=== PATIENT | female | born 1975 | race American Indian/Alaskan Native ===

== ENCOUNTER 2020-08-30 11:32 | Emergency (ER) | payer BC ==
[2020-08-30] MEDS ORDERED: FAMOTIDINE 20 MG TAB PO ONE (11:50)
[2020-08-30] MEDS ORDERED: ALUM-MAG HYDROXIDE-SIMETHICONE 200-200-20MG/5ML ORAL LIQD 30 ML PO ONE (11:50)
--- NOTE | 2020-08-30 11:52 | Event Note ---
ED Screening Note Date of service: 08/30/20 Time: 11:51 ED Screening Note: 45 yr old female presents to ED with c/o sharp substernal chest pain which has been intermittent since yesterday and right chest sided pressure which started today. She reports nausea but no vomiting. She denies abd pain, sob, cough, fever or chills. This initial assessment/diagnostic orders/clinical plan/treatment(s) is/are subject to change based on patients health status, clinical progression and re- assessment by fellow clinical providers in the ED. Further treatment and workup at subsequent clinical providers discretion. Patient/guardian urged not to elope from the ED as their condition may be serious if not clinically assessed and managed. Initial orders include: Chest pain order set
--- NOTE | 2020-08-30 12:29 | XRay Report ---
CHEST 2 VIEWS INDICATION: Chest Pain. COMPARISON: None FINDINGS: SUPPORT DEVICES: None. HEART: Within normal limits. LUNGS/PLEURA: No acute air space or interstitial disease. No pneumothorax. ADDITIONAL FINDINGS: None. IMPRESSION: 1. No acute findings. Signer Name: Prasad Diop MD Signed: 08/30/2020 12:25 PM Workstation Name: [id number]
[2020-08-30 12:36] LABS: Amphetamine Screen,Urine Negative; Benzodiazepines Screen,Urine Negative; Cannabinoid Screen,Urine Negative; Cocaine Screen,Urine Negative; Methadone Screen,Urine Negative; Opiate Screen,Urine Negative
[2020-08-30 12:44] LABS: Basophils % (Auto) 0.5 % (0.0-1.8); Eosinophils # (Auto) 0.1 K/mm3 (0.0-0.4); Hematocrit 41.9 % (30.3-42.9); Hemoglobin 13.9 gm/dl (10.1-14.3); Lymphocytes # (Auto) 1.6 K/mm3 (1.2-5.4); Lymphocytes % (Auto) 25.3 % (13.4-35.0); Mean Corpuscular HGB Conc 33 % (30-34); Mean Corpuscular Volume 70 fl (79-97); Monocytes # (Auto) 0.5 K/mm3 (0.0-0.8); Monocytes % (Auto) 8.5 % (0.0-7.3); Platelet Count 205 K/mm3 (140-440); Red Blood Count 5.99 M/mm3 (3.65-5.03); Red Cell Distribution Width 14.7 % (13.2-15.2)
[2020-08-30 12:51] LABS: Alanine Aminotransferase 19 units/L (7-56); BUN/Creatinine Ratio 11; Blood Urea Nitrogen 10 mg/dL (7-17); Calcium 9.3 mg/dL (8.4-10.2); Hemolysis Index 3
[2020-08-30 12:59] LABS: Bacteria,Urine 1+ /HPF (Negative); Bilirubin,Urine NEG (Negative); Blood,Urine NEG (Negative); Color,Urine Straw (Yellow); Protein,Urine <15 mg/dL mg/dL (Negative); Urobilinogen,Urine < 2.0 mg/dL (<2.0); WBC,Urine < 1.0 /HPF (0.0-6.0)
--- NOTE | 2020-08-30 13:09 | Emergency Department Report ---
ED Chest Pain HPI - General Chief Complaint: Chest Pain Stated Complaint: CHESTPAIN/UPPER ABDOMINAL PAIN Time Seen by Provider: 08/30/20 13:03 Source: patient Mode of arrival: Ambulatory Limitations: No Limitations - History of Present Illness Initial Comments: This is a 45-year-old female who has had a previous negative cardiac work-up in 2018 at this facility. She describes upper abdominal pain and lower chest pain without radiation. She states that she has had this problem for several years. It recurred last night. She describes a crampy discomfort which has improved since she has not eaten. She states that she has had similar pain which appears to be clearly postprandial. She denies ever having an ultra sound examination. She consciously fasted today to see if the pain would subside which it has. She states that she has always presume this was reflux. Indeed she has been previously diagnosed with the same. She states that to her knowledge gallstones do not run in her family. Patient denies any respiratory symptoms. She has had no recent travel. She has had no leg pain or swelling. She is essentially asymptomatic at the time of my encounter. 2018: Hospitalization Reason for admission: Chest pain /tightness/shortness of breath Condition: Serious Pertinent studies: ECHO : LVEF 55-60% Stress test:normal study[ negative for reversible ischemia],EF 60% Hospital course: Very pleasant obese 43-year-old female patient with significant history of hypertension, was admitted through ER with chest tightness and shortness of breath. Symptomatically managed,underwent Echo ,EF with in normal limits,and stress test,negative for reversible ischemia Patients chest pain and pressure ,non cardiac,probably secondary to GERD. managed with antacids and pain meds,symptoms significantly amproved. Advised weight reduction,patient verbalised understanding. Today patient is comfortable,no new complaints,of chest pain or tightness or shortness of breath vital signs stable, Physical exam prior to discharge is unremarkable. Patient is stable at discharge. Discharge Diagnosis: --Atypical chest pain: non cardiac ,negative stress test --GERD : probably the cause of chest pain/pressure like symptoms --Hypertension: stable --Obesity: advised weight reduction Disposition: DC-01 TO HOME OR SELFCARE - Related Data Home Medications Medication Instructions Recorded Confirmed Last Taken Ferrous Sulfate [Feosol 325 MG tab] 1 tab PO BID 05/23/18 05/23/18 05/23/18 Lisinopril/Hydrochlorothiazide 1 tab PO DAILY 05/23/18 05/23/18 05/23/18 [Zestoretic 20-25 mg] amLODIPine 1 tab PO DAILY 05/23/18 05/23/18 05/23/18 Previous Rx's Medication Instructions Recorded Last Taken Type traMADoL [Ultram] 50 mg PO Q6HR PRN #12 tablet 05/24/18 Unknown Rx Omeprazole 40 mg PO DAILY #30 capsule. 01/23/20 Unknown Rx Sucralfate [Carafate] 1 gm PO ACHS 7 Days #28 tablet 01/23/20 Unknown Rx Lansoprazole [Prevacid] 15 mg PO BID #60 cap 08/30/20 Unknown Rx Allergies Allergy/AdvReac Type Severity Reaction Status Date / Time No Known Allergies Allergy Verified 08/30/20 11:44 Heart Score - HEART Score History: Slightly suspicious EKG: Normal Age: 45-65 Risk factors: No known risk factors (Perhaps overweight) Troponin: < normal limit HEART Score: 1 - Critical Actions Critical Actions: 0-3 pts:0.9-1.7%risk of adverse cardiac event.Candidate for discharge ED Review of Systems ROS: Stated complaint: CHESTPAIN/UPPER ABDOMINAL PAIN Other details as noted in HPI Constitutional: denies: chills, fever Eyes: denies: eye pain, eye discharge, vision change ENT: denies: ear pain, throat pain Respiratory: denies: cough, shortness of breath Cardiovascular: chest pain. denies: palpitations Endocrine: no symptoms reported Gastrointestinal: abdominal pain, other (Indigestion/reflux symptoms). denies: nausea, diarrhea Genitourinary: denies: urgency, dysuria Musculoskeletal: denies: back pain, arthralgia Skin: denies: rash, lesions Neurological: denies: headache, weakness, paresthesias Psychiatric: denies: anxiety, depression Hematological/Lymphatic: denies: easy bleeding, easy bruising ED Past Medical Hx - Past Medical History Hx Hypertension: Yes Hx Congestive Heart Failure: No Hx Diabetes: No Hx Asthma: No Hx COPD: No Additional medical history: fibriods REFLUX. anemia - Surgical History Additional Surgical History: x1. hyster - Social History Smoking Status: Never Smoker Substance Use Type: None - Medications Home Medications: Home Medications Medication Instructions Recorded Confirmed Last Taken Type Ferrous Sulfate [Feosol 325 MG tab] 1 tab PO BID 05/23/18 05/23/18 05/23/18 History Lisinopril/Hydrochlorothiazide 1 tab PO DAILY 05/23/18 05/23/18 05/23/18 History [Zestoretic 20-25 mg] amLODIPine 1 tab PO DAILY 05/23/18 05/23/18 05/23/18 History traMADoL [Ultram] 50 mg PO Q6HR PRN #12 tablet 05/24/18 Unknown Rx Omeprazole 40 mg PO DAILY #30 capsule. 01/23/20 Unknown Rx Sucralfate [Carafate] 1 gm PO ACHS 7 Days #28 tablet 01/23/20 Unknown Rx Lansoprazole [Prevacid] 15 mg PO BID #60 cap 08/30/20 Unknown Rx ED Physical Exam - General Limitations: No Limitations General appearance: alert, in no apparent distress - Head Head exam: Present: atraumatic, normocephalic - Eye Eye exam: Present: normal appearance. Absent: scleral icterus - ENT ENT exam: Present: mucous membranes moist - Neck Neck exam: Present: normal inspection - Respiratory Respiratory exam: Present: normal lung sounds bilaterally. Absent: respiratory distress - Cardiovascular Cardiovascular Exam: Present: regular rate, normal rhythm. Absent: systolic murmur, diastolic murmur, rubs, gallop - GI/Abdominal GI/Abdominal exam: Present: soft, normal bowel sounds. Absent: distended, tenderness, guarding, rebound, rigid, organomegaly, mass, bruit - Extremities Exam Extremities exam: Present: normal inspection - Back Exam Back exam: Present: normal inspection - Neurological Exam Neurological exam: Present: alert, oriented X3, CN II-XII intact. Absent: motor sensory deficit - Psychiatric Psychiatric exam: Present: normal affect, normal mood - Skin Skin exam: Present: warm, dry, intact, normal color. Absent: rash ED Course Vital Signs 08/30/20 08/30/20 08/30/20 11:46 11:49 13:31 Temperature 98.0 F Pulse Rate 79 65 Respiratory 20 13 Rate Blood Pressure 136/91 110/68 O2 Sat by Pulse 98 100 Oximetry 08/30/20 14:01 Temperature Pulse Rate 69 Respiratory 12 Rate Blood Pressure 115/81 O2 Sat by Pulse 99 Oximetry - Reevaluation(s) Reevaluation #1: I do not find anything to suggest a cardiac etiology in the presentation EKG or laboratory work-up of this patient. It would appear that her symptoms are GI most consistent with biliary colic. An ultrasound is pending. 08/30/20 13:47 MARISOL score - Marisol Score Age > 65: (0) No Aspirin use within the Past 7 Days: (0) No 3 or more CAD Risk Factors: (0) No 2 or more Angina events in past 24 hrs: (1) Yes Known CAD with more than 50% Stenosis: (0) No Elevated Cardiac Markers: (0) No ST Deviation Greater than 0.5mm: (0) No MARISOL Score: 1 ED Medical Decision Making - Lab Data Result diagrams: 08/30/20 12:12 08/30/20 12:12 Laboratory Results - last 24 hr 08/30/20 08/30/20 08/30/20 12:12 12:12 12:12 WBC 6.3 RBC 5.99 H Hgb 13.9 Hct 41.9 MCV 70 L MCH 23 L MCHC 33 RDW 14.7 Plt Count 205 Lymph % (Auto) 25.3 [place] % (Auto) 8.5 H Eos % (Auto) 1.0 Baso % (Auto) 0.5 Lymph # (Auto) 1.6 [place] # (Auto) 0.5 Eos # (Auto) 0.1 Baso # (Auto) 0.0 Seg Neutrophils % 64.7 Seg Neutrophils # 4.1 Sodium 139 Potassium 3.9 Chloride 99.9 Carbon Dioxide 29 Anion Gap 14 BUN 10 Creatinine 0.9 Estimated GFR > 60 BUN/Creatinine Ratio 11 Glucose 101 H Calcium 9.3 Total Bilirubin 0.40 AST 21 ALT 19 Alkaline Phosphatase 74 Troponin T < 0.010 Total Protein 6.6 Albumin 4.0 Albumin/Globulin Ratio 1.5 Lipase 34 HCG, Qual Negative Urine Color Urine Turbidity Urine pH Ur Specific [place] Urine Protein Urine Glucose (UA) Urine Ketones Urine Blood Urine Nitrite Urine Bilirubin Urine Urobilinogen Ur Leukocyte Esterase Urine WBC (Auto) Urine RBC (Auto) U Epithel Cells (Auto) Urine Bacteria (Auto) Urine Opiates Screen Urine Methadone Screen Ur Barbiturates Screen Ur Phencyclidine Scrn Ur Amphetamines Screen U Benzodiazepines Scrn Urine Cocaine Screen U Marijuana (THC) Screen Drugs of Abuse Note 08/30/20 08/30/20 Unknown Unknown WBC RBC Hgb Hct MCV MCH MCHC RDW Plt Count Lymph % (Auto) [place] % (Auto) Eos % (Auto) Baso % (Auto) Lymph # (Auto) [place] # (Auto) Eos # (Auto) Baso # (Auto) Seg Neutrophils % Seg Neutrophils # Sodium Potassium Chloride Carbon Dioxide Anion Gap BUN Creatinine Estimated GFR BUN/Creatinine Ratio Glucose Calcium Total Bilirubin AST ALT Alkaline Phosphatase Troponin T Total Protein Albumin Albumin/Globulin Ratio Lipase HCG, Qual Urine Color Straw Urine Turbidity Clear Urine pH 7.0 Ur Specific [place] 1.004 Urine Protein <15 mg/dl Urine Glucose (UA) Neg Urine Ketones Neg Urine Blood Neg Urine Nitrite Neg Urine Bilirubin Neg Urine Urobilinogen < 2.0 Ur Leukocyte Esterase Neg Urine WBC (Auto) < 1.0 Urine RBC (Auto) 0.0 U Epithel Cells (Auto) 1.0 Urine Bacteria (Auto) 1+ Urine Opiates Screen Negative Urine Methadone Screen Negative Ur Barbiturates Screen Negative Ur Phencyclidine Scrn Negative Ur Amphetamines Screen Negative U Benzodiazepines Scrn Negative Urine Cocaine Screen Negative U Marijuana (THC) Screen Negative Drugs of Abuse Note Disclamer - EKG Data -: EKG Interpreted by Fl EKG shows normal: sinus rhythm, axis, intervals, QRS complexes, ST-T waves Rate: normal - EKG Data Interpretation: nonspecific ST-T wave brianna - Radiology Data Gallbladder ultrasound shows 2 polyps. No other findings per tech. Critical care attestation.: If time is entered above; I have spent that time in minutes in the direct care of this critically ill patient, excluding procedure time. 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 Return any acute change or problem. Rx as directed. Prescriptions: Lansoprazole [Prevacid] 15 mg PO BID #60 cap Referrals: BERNADETTE MORRIS MD [Primary Care Provider] - 3-5 Days [facility] [Provider Group] - 3-5 Days Time of Disposition: 15:32
[2020-08-30 14:51] VITALS: BP 115/81
--- NOTE | 2020-08-30 15:25 | Ultrasound Report ---
ULTRASOUND ABDOMEN, LIMITED (RIGHT UPPER QUADRANT) INDICATION: Post prandial abd pain. COMPARISON: None available. FINDINGS: Pancreas: The pancreatic tail is obscured. No significant abnormality along the remaining portions. Liver: Mildly enlarged, measuring 17.5 cm in length. There is nonspecific generalized heterogeneity. No other significant abnormality. Gallbladder: Subcentimeter polyps versus tumefactive sludge are noted without shadowing stones, wall thickening or pericholecystic fluid. A sonographic Perez sign was not reported. Bile ducts: No significant abnormality. Common Bile Duct measures 3.1 mm. Free fluid: None. Additional Findings: None. IMPRESSION: 1. Hepatomegaly with nonspecific generalized heterogeneous echotexture. Please correlate with the cli nical findings. 2. Tumefactive sludge versus polyps in the gallbladder without visualization of stones or evidence of acute cholecystitis. Signer Name: Hal Glass MD Signed: 08/30/2020 3:21 PM Workstation Name: [id number]
== END 2020-08-30 15:45 | disposition home or self-care (01) ==
LOC: ED 11:32
DX: K21.9 Gastro-esophageal reflux disease without esophagitis (principal); K82.4 Cholesterolosis of gallbladder; R07.89 Other chest pain; I10 Essential (primary) hypertension; Z98.890 Other specified postprocedural states; Z79.899 Other long term (current) drug therapy
CPT/HCPCS: 36415; 71046; 76705; 80053; 80307; 81001; 83690; 84484; 84703; 85025; 93005

== ENCOUNTER 2021-03-18 08:50 | Emergency (ER) | payer BC ==
[2021-03-18] MEDS ORDERED: DICYCLOMINE 20 MG TAB PO ONE (09:13)
[2021-03-18] MEDS ORDERED: METOCLOPRAMIDE 10 MG/2 ML INJ IV ONE (09:13)
[2021-03-18] MEDS ORDERED: SODIUM CHLORIDE 0.9% 1000 ML 1,000 ML IV ONE (09:13)
[2021-03-18] MEDS ORDERED: FAMOTIDINE 20 MG/2 ML INJ IV ONE (09:13)
[2021-03-18] MEDS ORDERED: diphenhydrAMINE 50 MG/ML VIAL IV ONE (09:14)
--- NOTE | 2021-03-18 10:05 | Emergency Department Report ---
ED Abdominal Pain HPI - General Chief Complaint: Abdominal Pain Stated Complaint: CP Time Seen by Provider: 03/18/21 09:10 Source: patient Mode of arrival: Ambulatory Limitations: No Limitations - History of Present Illness Initial Comments: This is a 45-year-old female nontoxic, well nourished in appearance, no acute signs of distress presents to the ED with c/o of nausea and abdominal "queasy" sensation x1 day. Patient stated has history of GERD and symptoms are similar. Describes abdominal as a burning sensation that goes to her epigastric area. Patient denies any vomiting. Patient describes abdominal queasy sensation primarily in the upper abdomen. Patient denies chest pain, short of breath, fever, hemoptysis, blood in stool, chills, headache, stiff neck, numbness or tingling. Patient denies any diarrhea or constipation. Denies any blood in stool. Patient denies any recent travels. Patient denies any allergies or significant past medical history. -: days(s) Location: epigastric Migration to: no migration Severity: mild Severity scale (0 -10): 0 Consistency: intermittent Improves With: nothing Worsens With: nothing Associated Symptoms: nausea. denies: vomiting, diarrhea, fever, chills, constipation, dysuria, hematemesis, hematochezia, melena, hematuria, anorexia, syncope - Related Data Home Medications Medication Instructions Recorded Confirmed Last Taken Ferrous Sulfate [Feosol 325 MG tab] 1 tab PO BID 05/23/18 05/23/18 05/23/18 Lisinopril/Hydrochlorothiazide 1 tab PO DAILY 05/23/18 05/23/18 05/23/18 [Zestoretic 20-25 mg] amLODIPine 1 tab PO DAILY 05/23/18 05/23/18 05/23/18 Previous Rx's Medication Instructions Recorded Last Taken Type traMADoL [Ultram] 50 mg PO Q6HR PRN #12 tablet 05/24/18 Unknown Rx Omeprazole 40 mg PO DAILY #30 capsule. 01/23/20 Unknown Rx Sucralfate [Carafate] 1 gm PO ACHS 7 Days #28 tablet 01/23/20 Unknown Rx Lansoprazole [Prevacid] 15 mg PO BID #60 cap 08/30/20 Unknown Rx Dicyclomine [Bentyl] 20 mg PO Q12H PRN #12 tablet 03/18/21 Unknown Rx Ondansetron [Zofran Odt] 4 mg PO Q12H PRN #12 tab.rapdis 03/18/21 Unknown Rx Allergies Allergy/AdvReac Type Severity Reaction Status Date / Time No Known Allergies Allergy Verified 03/18/21 09:01 ED Review of Systems ROS: Stated complaint: CP Other details as noted in HPI Comment: All other systems reviewed and negative Constitutional: denies: chills, fever Eyes: denies: eye pain, eye discharge, vision change ENT: denies: ear pain, throat pain Respiratory: denies: cough, shortness of breath, wheezing Cardiovascular: denies: chest pain, palpitations Endocrine: no symptoms reported Gastrointestinal: abdominal pain (" Queasy sensation"), nausea. denies: vomiting, diarrhea, constipation, hematemesis, melena, hematochezia Genitourinary: denies: urgency, dysuria, discharge Musculoskeletal: denies: back pain, joint swelling, arthralgia Skin: denies: rash, lesions Neurological: denies: headache, weakness, paresthesias Psychiatric: denies: anxiety, depression Hematological/Lymphatic: denies: easy bleeding, easy bruising ED Past Medical Hx - Past Medical History Hx Hypertension: Yes Hx Congestive Heart Failure: No Hx Diabetes: No Hx Asthma: No Hx COPD: No Additional medical history: fibriods. anemia - Surgical History Additional Surgical History: x1. hyster - Social History Smoking Status: Never Smoker Substance Use Type: None - Medications Home Medications: Home Medications Medication Instructions Recorded Confirmed Last Taken Type Ferrous Sulfate [Feosol 325 MG tab] 1 tab PO BID 05/23/18 05/23/18 05/23/18 History Lisinopril/Hydrochlorothiazide 1 tab PO DAILY 05/23/18 05/23/18 05/23/18 History [Zestoretic 20-25 mg] amLODIPine 1 tab PO DAILY 05/23/18 05/23/18 05/23/18 History traMADoL [Ultram] 50 mg PO Q6HR PRN #12 tablet 05/24/18 Unknown Rx Omeprazole 40 mg PO DAILY #30 capsule. 01/23/20 Unknown Rx Sucralfate [Carafate] 1 gm PO ACHS 7 Days #28 tablet 01/23/20 Unknown Rx Lansoprazole [Prevacid] 15 mg PO BID #60 cap 08/30/20 Unknown Rx Dicyclomine [Bentyl] 20 mg PO Q12H PRN #12 tablet 03/18/21 Unknown Rx Ondansetron [Zofran Odt] 4 mg PO Q12H PRN #12 tab.rapdis 03/18/21 Unknown Rx ED Physical Exam - General Limitations: No Limitations General appearance: alert, in no apparent distress - Head Head exam: Present: atraumatic, normocephalic - Eye Eye exam: Present: normal appearance - Neck Neck exam: Present: normal inspection, full ROM. Absent: lymphadenopathy - Respiratory Respiratory exam: Present: normal lung sounds bilaterally. Absent: respiratory distress, wheezes, rales, rhonchi, stridor, chest wall tenderness, accessory muscle use, decreased breath sounds, prolonged expiratory - Cardiovascular Cardiovascular Exam: Present: regular rate, normal rhythm, normal heart sounds. Absent: bradycardia, tachycardia, irregular rhythm, systolic murmur, diastolic murmur, rubs, gallop - GI/Abdominal GI/Abdominal exam: Present: soft, normal bowel sounds. Absent: distended, tenderness, guarding, rebound, rigid, diminished bowel sounds, mass, bruit, pulsatile mass, hernia - Extremities Exam Extremities exam: Present: full ROM - Back Exam Back exam: Present: normal inspection, full ROM. Absent: tenderness, CVA tenderness (R), CVA tenderness (L), muscle spasm, paraspinal tenderness, vertebral tenderness, rash noted - Neurological Exam Neurological exam: Present: alert, oriented X3, normal gait - Psychiatric Psychiatric exam: Present: normal affect, normal mood - Skin Skin exam: Present: warm, dry, intact, normal color. Absent: rash ED Course Vital Signs 03/18/21 03/18/21 03/18/21 09:07 12:10 12:20 Temperature 98.2 F 98.1 F Pulse Rate 70 88 Respiratory 18 14 Rate Blood Pressure Blood Pressure 126/84 115/68 [Right] O2 Sat by Pulse 99 100 100 Oximetry 03/18/21 03/18/21 03/18/21 12:31 12:45 13:10 Temperature Pulse Rate 66 71 Respiratory 10 L 21 Rate Blood Pressure 121/78 121/78 Blood Pressure [Right] O2 Sat by Pulse 100 99 100 Oximetry - Reevaluation(s) Reevaluation #1: 03/18/21 10:04 Patient is speaking in full sentences with no signs of distress noted. - Consultations Consultation #1: 03/18/21 14:48 Patient has been consulted with Aftab Peace about patient history, physical exam, and labs and agrees to the ED plan of care and discharge plan of care. ED Medical Decision Making - Lab Data Result diagrams: 03/18/21 09:43 03/18/21 14:08 Lab Results 03/18/21 03/18/21 03/18/21 Range/Units 09:04 09:43 09:43 WBC 6.5 (4.5-11.0) K/mm3 RBC 5.82 H (3.65-5.03) M/mm3 Hgb 13.4 (10.1-14.3) gm/dl Hct 41.4 (30.3-42.9) % MCV 71 L (79-97) fl MCH 23 L (28-32) pg MCHC 32 (30-34) % RDW 14.9 (13.2-15.2) % Plt Count 234 (140-440) K/mm3 Lymph % (Auto) 18.9 (13.4-35.0) % Redwood % (Auto) 8.7 H (0.0-7.3) % Eos % (Auto) 0.6 (0.0-4.3) % Baso % (Auto) 0.5 (0.0-1.8) % Lymph # (Auto) 1.2 (1.2-5.4) K/mm3 [place] # (Auto) 0.6 (0.0-0.8) K/mm3 Eos # (Auto) 0.0 (0.0-0.4) K/mm3 Baso # (Auto) 0.0 (0.0-0.1) K/mm3 Seg Neutrophils % 71.3 H (40.0-70.0) % Seg Neutrophils # 4.6 (1.8-7.7) K/mm3 Sodium 140 (137-145) mmol/L Potassium 2.9 L* (3.6-5.0) mmol/L Chloride 102.6 (98-107) mmol/L Carbon Dioxide 23 (22-30) mmol/L Anion Gap 17 mmol/L BUN 11 (7-17) mg/dL Creatinine 0.8 (0.6-1.2) mg/dL Estimated GFR > 60 ml/min BUN/Creatinine Ratio 14 % Glucose 95 (65-100) mg/dL Calcium 9.1 (8.4-10.2) mg/dL Magnesium (1.7-2.3) mg/dL Total Bilirubin 0.50 (0.1-1.2) mg/dL AST 19 (5-40) units/L ALT 18 (7-56) units/L Alkaline Phosphatase 73 (35-129) units/L Total Protein 6.8 (6.3-8.2) g/dL Albumin 3.9 (3.9-5) g/dL Albumin/Globulin Ratio 1.3 % Lipase 27 (13-60) units/L Urine Color Straw (Yellow) Urine Turbidity Clear (Clear) Urine pH 5.0 (5.0-7.0) Ur Specific Lyons 1.005 (1.003-1.030) Urine Protein <15 mg/dl (Negative) mg/dL Urine Glucose (UA) Neg (Negative) mg/dL Urine Ketones Neg (Negative) mg/dL Urine Blood Sm (Negative) Urine Nitrite Neg (Negative) Urine Bilirubin Neg (Negative) Urine Urobilinogen < 2.0 (<2.0) mg/dL Ur Leukocyte Esterase Neg (Negative) Urine WBC (Auto) < 1.0 (0.0-6.0) /HPF Urine RBC (Auto) < 1.0 (0.0-6.0) /HPF U Epithel Cells (Auto) < 1.0 (0-13.0) /HPF Urine Mucus Few /HPF 03/18/21 Range/Units 14:08 WBC (4.5-11.0) K/mm3 RBC (3.65-5.03) M/mm3 Hgb (10.1-14.3) gm/dl Hct (30.3-42.9) % MCV (79-97) fl MCH (28-32) pg MCHC (30-34) % RDW (13.2-15.2) % Plt Count (140-440) K/mm3 Lymph % (Auto) (13.4-35.0) % Redwood % (Auto) (0.0-7.3) % Eos % (Auto) (0.0-4.3) % Baso % (Auto) (0.0-1.8) % Lymph # (Auto) (1.2-5.4) K/mm3 Redwood # (Auto) (0.0-0.8) K/mm3 Eos # (Auto) (0.0-0.4) K/mm3 Baso # (Auto) (0.0-0.1) K/mm3 Seg Neutrophils % (40.0-70.0) % Seg Neutrophils # (1.8-7.7) K/mm3 Sodium (137-145) mmol/L Potassium 3.9 D (3.6-5.0) mmol/L Chloride (98-107) mmol/L Carbon Dioxide (22-30) mmol/L Anion Gap mmol/L BUN (7-17) mg/dL Creatinine (0.6-1.2) mg/dL Estimated GFR ml/min BUN/Creatinine Ratio % Glucose (65-100) mg/dL Calcium (8.4-10.2) mg/dL Magnesium 2.00 (1.7-2.3) mg/dL Total Bilirubin (0.1-1.2) mg/dL AST (5-40) units/L ALT (7-56) units/L Alkaline Phosphatase (35-129) units/L Total Protein (6.3-8.2) g/dL Albumin (3.9-5) g/dL Albumin/Globulin Ratio % Lipase (13-60) units/L Urine Color (Yellow) Urine Turbidity (Clear) Urine pH (5.0-7.0) Ur Specific Lyons (1.003-1.030) Urine Protein (Negative) mg/dL Urine Glucose (UA) (Negative) mg/dL Urine Ketones (Negative) mg/dL Urine Blood (Negative) Urine Nitrite (Negative) Urine Bilirubin (Negative) Urine Urobilinogen (<2.0) mg/dL Ur Leukocyte Esterase (Negative) Urine WBC (Auto) (0.0-6.0) /HPF Urine RBC (Auto) (0.0-6.0) /HPF U Epithel Cells (Auto) (0-13.0) /HPF Urine Mucus /HPF - Radiology Data [facility] [address] [place] [address] Cat Scan Report Signed Patient: SIGIFREDO NOONAN MR#: [id number] : 1974 Acct:[id number] Age/Sex: 45 / F ADM Date: 03/18/21 Loc: ED Attending Dr: Ordering Physician: JANE LIU NP Date of Service: 03/18/21 Procedure(s): CT abdomen pelvis w con Accession Number(s): [id number] cc: JANE LIU NP CT ABDOMEN AND PELVIS WITH CONTRAST INDICATION / CLINICAL INFORMATION: Unspecified abdominal pain. TECHNIQUE: Axial CT images were obtained through the abdomen and pelvis after 100 cc Omnipaque [address] scans at this location are performed using CT dose reduction for ALARA by means of automated exposure control. COMPARISON: Limited abdominal ultrasound performed on 08/30/2020. FINDINGS: LOWER CHEST: No significant abnormality. LIVER: No significant a bnormality. GALLBLADDER: No significant abnormality. BILE DUCTS: No significant abnormality. PANCREAS: No significant abnormality. SPLEEN: No significant abnormality. ADRENALS: No significant abnormality. KIDNEYS / URETERS: No significant abnormality. STOMACH / SMALL BOWEL: No significant abnormality. COLON: No significant abnormality. APPENDIX: No significant abnormality. PERITONEUM: No free fluid. No free air. No fluid collection. LYMPH NODES: No significant adenopathy. AORTA / ARTERIES: No significant abnormality. IVC / VEINS: No significant abnormality. URINARY BLADDER: Well-distended without an acute abnormality. REPRODUCTIVE ORGANS: No significant abnormality. ADDITIONAL FINDINGS: None. BONES: No significant abnormality. IMPRESSION: 1. No significant abnormality of the abdomen or pelvis. Signer Name: Hal Glass MD Signed: 03/18/2021 12:35 PM Workstation Name: [id number] Transcribed By: CHERYL Dictated By: Hal Glass MD Electronically Authenticated By: Hla Glass MD Sign ed Date/Time: 03/18/21 1235 DD/ 1230 TD/TT: - Medical Decision Making This is a 45-year-old female that presents with abdominal pain, nausea, hypokal emia.. Patient is stable and was examined by me. Labs obtained. Patient stated she takes a diuretic which causes sometimes hypokalemia. UA obtained. CT of abdomen obtained and dictated by the radiologist. Patient is notified of the report with no questions noted by the patient. Vital signs are stable prior to discharge. Patient received medical treatment in the ED which patient stated symptoms has resovled and subsided. Was instructed note to operate any machinery due to possible drowsiness and stated someone will drive the patient home. A by mouth challenge has been obtained and patient tolerated well with no nausea vomiting. Patient was also instructed to Follow-up with a primary care doctor in 3-5 days or if symptoms worsen and continue return to emergency room as soon as possible. At time of discharge, the patient does not seem toxic or ill in appearance. No acute signs of distress noted. Patient agrees to discharge treatment plan of care. No further questions noted by the patient. Critical care attestation.: If time is entered above; I have spent that time in minutes in the direct care of this critically ill patient, excluding procedure time. 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 Prescriptions: Dicyclomine [Bentyl] 20 mg PO Q12H PRN #12 tablet PRN Reason: abdominal pain Ondansetron [Zofran Odt] 4 mg PO Q12H PRN #12 tab.rapdis PRN Reason: Nausea Referrals: BERNADETTE MORRIS MD [Primary Care Provider] - 3-5 Days ALTHEA MEJIA MD [Referring] - 3-5 Days TANK WAGNER MD [Staff Physician] - 3-5 Days [facility] [Provider Group] - 3-5 Days Forms: Work/School Release Form(ED) Time of Disposition: 14:56
[2021-03-18 10:15] LABS: Bilirubin,Urine NEG (Negative); Blood,Urine SM (Negative); Color,Urine Straw (Yellow); Mucus,Urine FEW /HPF; Protein,Urine <15 mg/dL mg/dL (Negative); RBC,Urine < 1.0 /HPF (0.0-6.0); Urobilinogen,Urine < 2.0 mg/dL (<2.0)
[2021-03-18 10:28] LABS: Alanine Aminotransferase 18 units/L (7-56); Albumin 3.9 g/dL (3.9-5); BUN/Creatinine Ratio 14; Blood Urea Nitrogen 11 mg/dL (7-17); Calcium 9.1 mg/dL (8.4-10.2); Hemolysis Index 4
[2021-03-18 10:33] LABS: Basophils % (Auto) 0.5 % (0.0-1.8); Eosinophils % (Auto) 0.6 % (0.0-4.3); Hematocrit 41.4 % (30.3-42.9); Hemoglobin 13.4 gm/dl (10.1-14.3); Lymphocytes # (Auto) 1.2 K/mm3 (1.2-5.4); Lymphocytes % (Auto) 18.9 % (13.4-35.0); Mean Corpuscular HGB Conc 32 % (30-34); Mean Corpuscular Volume 71 fl (79-97); Monocytes # (Auto) 0.6 K/mm3 (0.0-0.8); Monocytes % (Auto) 8.7 % (0.0-7.3); Platelet Count 234 K/mm3 (140-440); Red Blood Count 5.82 M/mm3 (3.65-5.03); Red Cell Distribution Width 14.9 % (13.2-15.2)
[2021-03-18] MEDS ORDERED: POTASSIUM CHLORIDE ER 20 MEQ TAB PO ONE (10:41)
[2021-03-18 11:00] LABS: WBC,Urine < 1.0 /HPF (0.0-6.0)
[2021-03-18] MEDS: POTASSIUM CHLORIDE 10 MEQ 10 MEQ/100 ML BAG IV SCH ×2 (11:30→13:09)
--- NOTE | 2021-03-18 12:39 | Cat Scan Report ---
CT ABDOMEN AND PELVIS WITH CONTRAST INDICATION / CLINICAL INFORMATION: Unspecified abdominal pain. TECHNIQUE: Axial CT images were obtained through the abdomen and pelvis after 100 cc Omnipaque [address] scans at this location are performed using CT dose reduction for ALARA by means of automated exposure control. COMPARISON: Limited abdominal ultrasound performed on 08/30/2020. FINDINGS: LOWER CHEST: No significant abnormality. LIVER: No significant abnormality. GALLBLADDER: No significant abnormality. BILE DUCTS: No significant abnormality. PANCREAS: No significant abnormality. SPLEEN: No significant abnormality. ADRENALS: No significant abnormality. KIDNEYS / URETERS: No significant abnormality. STOMACH / SMALL BOWEL: No significant abnormality. COLON: No significant abnormality. APPENDIX: No significant abnormality. PERITONEUM: No free fluid. No free air. No fluid collection. LYMPH NODES: No significant adenopathy. AORTA / ARTERIES: No significant abnormality. IVC / VEINS: No significant abnormality. URINARY BLADDER: Well-distended without an acute abnormality. REPRODUCTIVE ORGANS: No significant abnormality. ADDITIONAL FINDINGS: None. BONES: No significant abnormality. IMPRESSION: 1. No significant abnormality of the abdomen or pelvis. Signer Name: Hal Glass MD Signed: 03/18/2021 12:35 PM Workstation Name: [id number]
[2021-03-18] MEDS ORDERED: SODIUM CHLORIDE 0.9% 1000 ML 1,000 ML ONE (13:05)
[2021-03-18 13:10] VITALS: BP 121/78
--- NOTE | 2021-03-20 08:42 | Electrocardiograph Report ---
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
--- NOTE | 2021-03-21 12:21 | Electrocardiograph Report ---
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
== END 2021-03-18 15:03 | disposition home or self-care (01) ==
LOC: ED 08:50
DX: E87.6 Hypokalemia (principal); R10.13 Epigastric pain; R11.0 Nausea; I10 Essential (primary) hypertension; D21.9 Benign neoplasm of connective and other soft tissue, unspecified; D64.9 Anemia, unspecified; Z98.890 Other specified postprocedural states
CPT/HCPCS: 36415; 74177; 80053; 81001; 83690; 83735; 84132; 85025; 93005; 96361; 96365; 96366; 96375; 99284; J1200; J2765; J3480; J7030; Q9967

== ENCOUNTER 2021-07-22 16:23 | Emergency (ER) | payer BC ==
[2021-07-22] MEDS ORDERED: ASPIRIN 325 MG TAB PO ONE (16:41)
[2021-07-22 17:17] LABS: Basophils % (Auto) 0.6 % (0.0-1.8); Eosinophils # (Auto) 0.1 K/mm3 (0.0-0.4); Eosinophils % (Auto) 1.1 % (0.0-4.3); Lymphocytes # (Auto) 1.2 K/mm3 (1.2-5.4); Lymphocytes % (Auto) 20.3 % (13.4-35.0); Mean Corpuscular HGB Conc 31 % (30-34); Mean Corpuscular Volume 71 fl (79-97); Monocytes # (Auto) 0.7 K/mm3 (0.0-0.8); Platelet Count 197 K/mm3 (140-440); Red Cell Distribution Width 15.3 % (13.2-15.2)
--- NOTE | 2021-07-22 17:20 | XRay Report ---
CHEST 2 VIEWS INDICATION / CLINICAL INFORMATION: Chest pain. COMPARISON: 08/30/20. FINDINGS: SUPPORT DEVICES: None. HEART / MEDIASTINUM: The heart size and pulmonary vasculature are normal. The aorta is normal in porfirio shereen. LUNGS / PLEURA: No significant pulmonary or pleural abnormality. No pneumothorax. ADDITIONAL FINDINGS: No significant additional findings. IMPRESSION: No acute abnormality or significant change. Signer Name: Rodrick Burr MD Signed: 07/22/2021 5:15 PM Workstation Name: [id number]
[2021-07-22 17:27] LABS: Alanine Aminotransferase 17 units/L (7-56); Albumin 4.1 g/dL (3.9-5); BUN/Creatinine Ratio 16; Blood Urea Nitrogen 13 mg/dL (7-17); Calcium 9.2 mg/dL (8.4-10.2); Hemolysis Index 10
[2021-07-22 17:54] LABS: Hematocrit 46.1 % (30.3-42.9); Hemoglobin 14.2 gm/dl (10.1-14.3)
--- NOTE | 2021-07-22 18:42 | Emergency Department Report ---
ED Chest Pain HPI - General Chief Complaint: Chest Pain Stated Complaint: CHEST,BACK PAIN PUI?: No Time Seen by Provider: 07/22/21 18:08 Source: patient Mode of arrival: Ambulatory Limitations: No Limitations - History of Present Illness Initial Comments: CC: chest pain, strong urine odor HPI: This is a 46 yo female with hx of HTN, GERD who presents with bilateral breast pain. Dull mild pain for several days. Has had intermittent sharp pain. Mild dyspnea. Pain intermittent and mild. Worse with movement. Has resolved spontaneously. According to EMR, in 2018, echo 55-60%, myocardial perfusion scan stress test neg for ischemia Patient also has had strong odor to her urine. Concern for UTI. MD Complaint: chest pain -: Gradual, days(s) (3 days) Onset: during rest Pain Radiation: back Severity: mild Severity scale (0 -10): 5 Quality: other (dull breast pain, sharp) Consistency: intermittent, now resolved Improves With: nothing Worsens With: movement Treatments Prior to Arrival: none - Related Data Home Medications Medication Instructions Recorded Confirmed Last Taken Ferrous Sulfate [Feosol 325 MG tab] 1 tab PO BID 05/23/18 05/23/18 05/23/18 Lisinopril/Hydrochlorothiazide 1 tab PO DAILY 05/23/18 05/23/18 05/23/18 [Zestoretic 20-25 mg] amLODIPine 1 tab PO DAILY 05/23/18 05/23/18 05/23/18 Previous Rx's Medication Instructions Recorded Last Taken Type traMADoL [Ultram] 50 mg PO Q6HR PRN #12 tablet 05/24/18 Unknown Rx Omeprazole 40 mg PO DAILY #30 capsule. 01/23/20 Unknown Rx Sucralfate [Carafate] 1 gm PO ACHS 7 Days #28 tablet 01/23/20 Unknown Rx Lansoprazole [Prevacid] 15 mg PO BID #60 cap 08/30/20 Unknown Rx Dicyclomine [Bentyl] 20 mg PO Q12H PRN #12 tablet 03/18/21 Unknown Rx Ondansetron [Zofran Odt] 4 mg PO Q12H PRN #12 tab.rapdis 03/18/21 Unknown Rx Fluconazole [Diflucan TAB] 200 mg PO ONCE #1 tablet 07/22/21 Unknown Rx cephALEXin [Keflex] 500 mg PO TID 5 Days #15 cap 07/22/21 Unknown Rx Allergies Allergy/AdvReac Type Severity Reaction Status Date / Time No Known Allergies Allergy Verified 07/22/21 16:34 Heart Score - HEART Score History: Slightly suspicious EKG: Non-specific Age: < 45 Risk factors: 1-2 risk factors Troponin: < normal limit HEART Score: 2 - EKG Read Time Time EKG Completed: 16:40 EKG Read Time: 16:51 ED Review of Systems ROS: Stated complaint: CHEST,BACK PAIN Other details as noted in HPI Comment: All other systems reviewed and negative Constitutional: denies: chills, fever, malaise Respiratory: shortness of breath. denies: cough Cardiovascular: chest pain Musculoskeletal: back pain ED Past Medical Hx - Past Medical History Previous Medical History?: Yes Hx Hypertension: Yes Hx Congestive Heart Failure: No Hx Diabetes: No Hx GERD: Yes Hx Asthma: No Hx COPD: No Additional medical history: fibriods. anemia - Surgical History Past Surgical History?: Yes Additional Surgical History: x1. hyster - Family History Family history: hypertension - Social History Smoking Status: Never Smoker Substance Use Type: None - Medications Home Medications: Home Medications Medication Instructions Recorded Confirmed Last Taken Type Ferrous Sulfate [Feosol 325 MG tab] 1 tab PO BID 05/23/18 05/23/18 05/23/18 History Lisinopril/Hydrochlorothiazide 1 tab PO DAILY 05/23/18 05/23/18 05/23/18 History [Zestoretic 20-25 mg] amLODIPine 1 tab PO DAILY 05/23/18 05/23/18 05/23/18 History traMADoL [Ultram] 50 mg PO Q6HR PRN #12 tablet 05/24/18 Unknown Rx Omeprazole 40 mg PO DAILY #30 capsule. 01/23/20 Unknown Rx Sucralfate [Carafate] 1 gm PO ACHS 7 Days #28 tablet 01/23/20 Unknown Rx Lansoprazole [Prevacid] 15 mg PO BID #60 cap 08/30/20 Unknown Rx Dicyclomine [Bentyl] 20 mg PO Q12H PRN #12 tablet 03/18/21 Unknown Rx Ondansetron [Zofran Odt] 4 mg PO Q12H PRN #12 tab.rapdis 03/18/21 Unknown Rx Fluconazole [Diflucan TAB] 200 mg PO ONCE #1 tablet 07/22/21 Unknown Rx cephALEXin [Keflex] 500 mg PO TID 5 Days #15 cap 07/22/21 Unknown Rx ED Physical Exam - General Limitations: No Limitations General appearance: alert, in no apparent distress - Head Head exam: Present: atraumatic, normocephalic - Eye Eye exam: Present: normal appearance - ENT ENT exam: Present: mucous membranes moist - Neck Neck exam: Present: normal inspection - Respiratory Respiratory exam: Present: normal lung sounds bilaterally. Absent: respiratory distress - Cardiovascular Cardiovascular Exam: Present: regular rate, normal rhythm, normal heart sounds, other (Equal radial pulses). Absent: systolic murmur, diastolic murmur, rubs, gallop - GI/Abdominal GI/Abdominal exam: Present: soft, normal bowel sounds. Absent: distended, tenderness, guarding, rebound - Extremities Exam Extremities exam: Present: normal inspection - Back Exam Back exam: Present: normal inspection - Neurological Exam Neurological exam: Present: alert, oriented X3 - Psychiatric Psychiatric exam: Present: normal affect, normal mood - Skin Skin exam: Present: warm, dry, intact, normal color. Absent: rash JAVIER score - Javier Score Age > 65: (0) No Aspirin use within the Past 7 Days: (0) No 3 or more CAD Risk Factors: (0) No 2 or more Angina events in past 24 hrs: (1) Yes Known CAD with more than 50% Stenosis: (0) No Elevated Cardiac Markers: (0) No ST Deviation Greater than 0.5mm: (0) No JAVIER Score: 1 ED Medical Decision Making - Lab Data Result diagrams: 07/22/21 16:50 07/22/21 16:50 Laboratory Results - last 24 hr 07/22/21 07/22/21 16:50 16:50 WBC 6.0 RBC 6.50 H Hgb 14.2 Hct 46.1 H MCV 71 L MCH 22 L MCHC 31 RDW 15.3 H Plt Count 197 Lymph % (Auto) 20.3 [place] % (Auto) 11.0 H Eos % (Auto) 1.1 Baso % (Auto) 0.6 Lymph # (Auto) 1.2 [place] # (Auto) 0.7 Eos # (Auto) 0.1 Baso # (Auto) 0.0 Seg Neutrophils % 67.0 Seg Neutrophils # 4.0 Sodium 139 Potassium 3.6 Chloride 104.8 Carbon Dioxide 22 Anion Gap 16 BUN 13 Creatinine 0.8 Estimated GFR > 60 BUN/Creatinine Ratio 16 Glucose 95 Calcium 9.2 Total Bilirubin 0.30 AST 18 ALT 17 Alkaline Phosphatase 63 Troponin T < 0.010 Total Protein 6.8 Albumin 4.1 Albumin/Globulin Ratio 1.5 - EKG Data -: EKG Interpreted by Me EKG shows normal: sinus rhythm, axis, intervals, QRS complexes - EKG Data Interpretation: nonspecific ST-T wave brianna 07/22/21 18:40 EKG obtained 1640 EKG interpreted by me Rate 70 bpm normal axis normal intervals no ST elevation, nonspecific T wave pattern - Radiology Data Radiology results: report reviewed Patient Name: SIGIFREDO NOONAN Gender: Female Date of : 1975 Referring Provider: MAURY, ED Organization: [facility] Accession Number: [id number] Requested Date: July 22, 2021 16:41 Report Status: Final Requested Procedure: 1 Procedure Description: XR chest routine 2V Modality: XR Findings Reporting MD: Rodrick Burr Dictation Time: July 22, 2021 16:15 Hand Candle Dipper: Not available 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 COMPARISON: 08/30/20. FINDINGS: SUPPORT DEVICES: None. HEART / MEDIASTINUM: The heart size and pulmonary vasculature are normal. The aorta is normal in caliber. LUNGS / PLEURA: No significant pulmonary or pleural abnormality. No pneumothorax. ADDITIONAL FINDINGS: No significant additional findings. IMPRESSION: No acute abnormality or significant change. Signer Name: Rodrick Burr MD Signed: 07/22/2021 4:15 PM Workstation Name: [id number] - Medical Decision Making 1. Chest wall pain, musculoskeletal back pain: PERC negative for PE. No evidence of pneumonia or infiltrate on chest radiograph. No indication of aortic dissection. Patient appears well comfortable. I offered referral to paint formulator. She declined. She stated that she had full cardiac work-up while admitted. I do agree that this is highly atypical for ACS. She did have cardiac work-up here in 2018. She will follow up with her primary care physician. 2. Malodorous urine: Prescribed cephalexin and fluconazole for suspected UTI. Critical care attestation.: If time is entered above; I have spent that time in minutes in the direct care of this critically ill patient, excluding procedure time. ED Disposition Clinical Impression: Chest wall pain, Musculoskeletal back pain, UTI (urinary tract infection) Disposition: HOME / SELF CARE / HOMELESS Is pt being admited?: No Does the pt Need Aspirin: No Condition: Stable Instructions: Chest Wall Pain Prescriptions: Fluconazole [Diflucan TAB] 200 mg PO ONCE #1 tablet cephALEXin [Keflex] 500 mg PO TID 5 Days #15 cap Referrals: PRIMARY CARE, [Referring] - 3-5 Days
[2021-07-22 19:10] VITALS: BP 143/89
--- NOTE | 2021-07-23 08:50 | Electrocardiograph Report ---
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
== END 2021-07-22 19:17 | disposition home or self-care (01) ==
LOC: ED 16:23
DX: R07.89 Other chest pain (principal); M79.18 Myalgia, other site; N39.0 Urinary tract infection, site not specified; I10 Essential (primary) hypertension; K21.9 Gastro-esophageal reflux disease without esophagitis; Z79.899 Other long term (current) drug therapy; Z98.890 Other specified postprocedural states
CPT/HCPCS: 36415; 71046; 80053; 84484; 85025; 93005; 93010; 99284